=== PATIENT | female | born 1940 | race Caucasian/White ===

== ENCOUNTER 2017-01-20 15:46 | Emergency (ER) | payer OTHER ==
[~2017-01-20] VITALS: Ht 167.6 cm; Wt 73.0 kg
[~2017-01-20 15:46] MED LIST: ACET325T14 PO; BENA10TA2 PO; CEPH-368 PO; CHOL100011 PO; DIGO250T PO; FURO20TA3 PO; FURO40TA6 PO; GABA300C10 PO; GLIP5TAB10 PO; LUTE1CAP3 PO; METF10002 PO; METO-99 PO; SIMV20TA3 PO; SPIR25TA3 PO; TRAM50TA2 PO; WARF5TAB PO
[2017-01-20 16:33] LABS: HEMATOCRIT 44.5 % (34.6-47.8); WHITE BLOOD COUNT 8.7 x10^3/uL (3.4-10)
[2017-01-20 16:43] LABS: DAU SCREEN DISCLAIMER
[2017-01-20 16:44] LABS: ASPARTATE AMINO TRANSFERASE 23 U/L (15-37); BLOOD UREA NITROGEN 16 mg/dL (7-18)
[2017-01-20 16:52] LABS: ACETAMINOPHEN < 2 mcg/mL (10-30)
[2017-01-20 16:56] LABS: PATH.CAST-FLAG NOT PRESENT; SPERM-FLAG NOT PRESENT; SRC-FLAG NOT PRESENT; XTAL-FLAG NOT PRESENT; YLC-FLAG NOT PRESENT
[2017-01-20] MEDS ORDERED: INSU100V13 SQ-INSULIN (17:54)
[2017-01-20] MEDS ORDERED: GABA300C10 PO (17:54)
[2017-01-20] MEDS ORDERED: CEFDINIR 300 MG CAPSULE PO ONE (18:30)
[2017-01-20 19:09] VITALS: BP 130/82
== END 2017-01-20 19:34 | disposition home or self-care (01) ==
LOC: ED 18:09
DX: F33.9 Major depressive disorder, recurrent, unspecified (principal); R45.851 Suicidal ideations; E11.9 Type 2 diabetes mellitus without complications; E78.5 Hyperlipidemia, unspecified; I11.0 Hypertensive heart disease with heart failure; I50.9 Heart failure, unspecified; M19.90 Unspecified osteoarthritis, unspecified site
CPT/HCPCS: 36415; 71010; 80053; 80307; 80329; 81001; 85025; 87086; 99285; G0479; G0480

== ENCOUNTER 2017-04-04 17:25 | Inpatient (IN) | payer OTHER ==
[~2017-04-04] VITALS: Ht 170.2 cm; Wt 72.6 kg
[~2017-04-04 17:25] MED LIST changes: +INSU100V13 SQ-INSULIN
[2017-04-04] MEDS ORDERED: SODIUM CHLORIDE 0.9% 1,000ML IVBOLUS ONE (18:00)
[2017-04-04] MEDS ORDERED: HYDROmorphone 1 MG/ML, 1ML IVPush PRN (18:00)
[2017-04-04] MEDS ORDERED: ONDANSETRON 2MG/ML, 2ML IVPush ONE (18:00)
[2017-04-04] MEDS ORDERED: SODIUM CHLORIDE FLUSH 10ML SYR IVF ONE (18:00)
[2017-04-04] MEDS ORDERED: ONDANSETRON 2MG/ML, 2ML ONE (18:13)
[2017-04-04] MEDS ORDERED: HYDROmorphone 2 MG/ML, 1ML ONE (18:13)
[2017-04-04 18:30] LABS: MICROSCOPIC INDICATED
[2017-04-04 18:36] LABS: MEAN CORPUSCULAR HEMOGLOBIN 30.2 pg (27.0-34.8); MEAN CORPUSCULAR HGB CONC 32.6 g/dL (32.4-35.8); MEAN CORPUSCULAR VOLUME 92.5 fL (80-100); MEAN PLATELET VOLUME 7.8 fL (7.4-10.4); PLATELET COUNT 208 x10^3/uL (130-400); RED BLOOD COUNT 5.16 x10^6/uL (3.82-5.3); RED CELL DISTRIBUTION WIDTH 13.7 % (9.6-15.2)
[2017-04-04 18:43] LABS: CULTURE INDICATED? NO
[2017-04-04 18:44] LABS: INTERNATIONAL NORMALIZED RATIO 1.29 (0.93-1.1); PROTHROMBIN TIME 13.3 Seconds (9.6-11.5)
[2017-04-04 18:48] LABS: ALANINE AMINOTRANSFERASE 26 U/L (12-78); ALBUMIN 3.6 g/dL (3.4-5.0); ANION GAP 12 mmol/L (5-15); CALCIUM 9.6 mg/dL (8.5-10.1); CHLORIDE 104 mmol/L (98-107); CREATININE 1.27 mg/dL (0.55-1.02)
[2017-04-04 18:50] LABS: MD YES
[2017-04-04 18:51] LABS: BAND#(MANUAL) 2.02 x10^3/uL; BANDS%(MANUAL) 8 % (0-7); LYMPH#(MANUAL) 0.51 x10^3/uL (1-3.4); LYMPHS% (MANUAL) 2 % (22-44); MONOS#(MANUAL) 1.27 x10^3/uL (0.3-2.7); MONOS% (MANUAL) 5 % (2-9); SEG#(MANUAL) 21.51 x10^3/uL (1.8-6.8); SEGS% (MANUAL) 85 % (42-75)
[2017-04-04 18:52] LABS: <RBC MORPHOLOGY> NORMAL
[2017-04-04 18:53] LABS: <PLATELET ESTIMATE> ADEQUATE; <PLT MORPHOLOGY> NORMAL PLT MORPH
[2017-04-04 18:59] LABS: ALKALINE PHOSPHATASE 76 U/L (45-117); BILIRUBIN,TOTAL 1.3 mg/dL (0.2-1.0); CREATINE KINASE, TOTAL 112 U/L (26-192); THYROID STIMULATING HORMONE 0.843 mIU/L (0.358-3.740)
[2017-04-04] MEDS ORDERED: LACTATED RINGERS 1,000 ML IVBOLUS ONE (19:00)
[2017-04-04] MEDS ORDERED: INSULIN REGULAR 100 UNITS/ML, 3ML VIAL IVPush ONE (19:00)
[2017-04-04] MEDS ORDERED: PIPERACILLIN/TAZO/PMX 3.375GM 50 ML IV ONE (19:00)
[2017-04-04] MEDS ORDERED: INSULIN REGULAR 100 UNITS/ML, 3ML VIAL ONE (19:20)
[2017-04-04 19:22] LABS: ACETONE, SERUM Trace (10mg/dL) mg/dL (Negative)
[2017-04-04] MEDS ORDERED: OMNIPAQUE 350 MG/ML, 100ML BOTTLE ONE (19:49)
[2017-04-04] MEDS ORDERED: MAGNESIUM SULFATE PMX 4GM/100M 100 ML IV ONE (20:00)
[2017-04-04 20:35] LABS: TROPONIN I < 0.015 ng/mL (0.000-0.045)
[2017-04-04 20:45] LABS: TROPONIN I < 0.015 ng/mL (0.000-0.045)
[2017-04-04] MEDS ORDERED: LABETALOL 5MG/ML, 20ML IVPush PRN (21:00)
[2017-04-04] MEDS ORDERED: ONDANSETRON ODT 4 MG PO PRN (21:00)
[2017-04-04] MEDS ORDERED: DOCUSATE 100 MG CAPSULE PO PRN (21:00)
[2017-04-04] MEDS ORDERED: WARFARIN 5 MG TABLET PO-COUM ONE (22:00)
[2017-04-04] MEDS: SODIUM CHLORIDE 0.9% 1,000 ML IV SCH (22:19)
[2017-04-04] MEDS ORDERED: METOPROLOL TARTRATE 50 MG TABLET PO ONE (22:30)
[2017-04-04 22:56] LABS: RAPID INFLUENZA A Negative (Negative); RAPID INFLUENZA B Negative (Negative)
[2017-04-04] MEDS: ENOXAPARIN 40 MG/0.4 ML SQ SCH (23:43)
[2017-04-05] MEDS ORDERED: MAGNESIUM CITRATE 300ML ORAL SOL PO ONE (00:30)
[2017-04-05] MEDS: INSULIN ASPART 100 UNITS/ML, PEN SQ-INSULIN SCH ×5 (00:31→21:24)
[2017-04-05] MEDS: PIPERACILLIN/TAZO/PMX 3.375GM 50 ML IV SCH ×4 (02:49→21:21)
[2017-04-05 03:01] VITALS: BP 136/75
[2017-04-05] MEDS: ACETAMINOPHEN 325 MG TABLET PO PRN ×4 (03:03→21:21)
[2017-04-05 03:53] LABS: MEAN CORPUSCULAR HGB CONC 33.7 g/dL (32.4-35.8); MEAN CORPUSCULAR VOLUME 92.1 fL (80-100); MEAN PLATELET VOLUME 7.7 fL (7.4-10.4); PLATELET COUNT 198 x10^3/uL (130-400); RED BLOOD COUNT 4.68 x10^6/uL (3.82-5.3); RED CELL DISTRIBUTION WIDTH 13.5 % (9.6-15.2)
[2017-04-05 04:03] LABS: MD YES
[2017-04-05 04:08] LABS: ANION GAP 8 mmol/L (5-15); CALCIUM 9.4 mg/dL (8.5-10.1); CHLORIDE 108 mmol/L (98-107); CREATININE 1.08 mg/dL (0.55-1.02)
[2017-04-05 04:09] LABS: <PLATELET ESTIMATE> ADEQUATE; <PLT MORPHOLOGY> NORMAL PLT MORPH; <RBC MORPHOLOGY> NORMAL; BAND#(MANUAL) 2.42 x10^3/uL; BANDS%(MANUAL) 11 % (0-7); LYMPH#(MANUAL) 0.66 x10^3/uL (1-3.4); LYMPHS% (MANUAL) 3 % (22-44); MONOS#(MANUAL) 0.44 x10^3/uL (0.3-2.7); MONOS% (MANUAL) 2 % (2-9); SEG#(MANUAL) 18.48 x10^3/uL (1.8-6.8); SEGS% (MANUAL) 84 % (42-75); TROPONIN I 0.017 ng/mL (0.000-0.045)
[2017-04-05 07:53] VITALS: BP 115/79
[2017-04-05 08:04] LABS: INTERNATIONAL NORMALIZED RATIO 1.4 (0.93-1.1); PROTHROMBIN TIME 14.5 Seconds (9.6-11.5)
[2017-04-05 08:11] LABS: TROPONIN I < 0.015 ng/mL (0.000-0.045)
[2017-04-05] MEDS: SENNA/DOCUSATE TABLET PO SCH (08:25)
[2017-04-05] MEDS ORDERED: WARFARIN 5 MG TABLET PO-COUM SCH (09:00)
[2017-04-05] MEDS ORDERED: DOCU250C9 PO (09:30)
[2017-04-05] MEDS ORDERED: VIT1CAPS10 PO (09:43)
[2017-04-05] MEDS ORDERED: CHOL100011 PO (09:43)
[2017-04-05] MEDS ORDERED: MIRT7.5T8 PO (09:43)
[2017-04-05] MEDS: SODIUM CHLORIDE 0.9% 1,000 ML IV SCH (14:38)
[2017-04-05 14:58] VITALS: BP 101/53
[2017-04-05] MEDS ORDERED: WARFARIN 3 MG TABLET PO-COUM SCH (18:00)
[2017-04-05 21:09] VITALS: BP 115/66
[2017-04-05] MEDS: ENOXAPARIN 40 MG/0.4 ML SQ SCH (21:21)
[2017-04-05] MEDS: METOPROLOL SUCCINATE 25 MG TAB.ER.24H PO SCH (23:40)
[2017-04-06 02:08] VITALS: BP 118/70
[2017-04-06] MEDS: PIPERACILLIN/TAZO/PMX 3.375GM 50 ML IV SCH ×4 (02:10→19:42)
[2017-04-06] MEDS ORDERED: METOPROLOL SUCCINATE 25 MG TAB.ER.24H PO SCH (06:00)
[2017-04-06] MEDS: SODIUM CHLORIDE 0.9% 1,000 ML IV SCH (06:11)
[2017-04-06 06:20] LABS: INTERNATIONAL NORMALIZED RATIO 1.62 (0.93-1.1); PROTHROMBIN TIME 16.7 Seconds (9.6-11.5)
[2017-04-06 06:45] VITALS: BP 118/75
[2017-04-06] MEDS: METOPROLOL SUCCINATE 25 MG TAB.ER.24H PO SCH (08:07)
[2017-04-06] MEDS: SENNA/DOCUSATE TABLET PO SCH (08:07)
[2017-04-06] MEDS: INSULIN ASPART 100 UNITS/ML, PEN SQ-INSULIN SCH ×4 (08:25→21:01)
[2017-04-06] MEDS: ACETAMINOPHEN 325 MG TABLET PO PRN ×2 (10:07→21:50)
[2017-04-06 13:00] VITALS: BP 119/80
[2017-04-06] MEDS: DIGOXIN 0.25 MG TABLET PO SCH (14:15)
[2017-04-06] MEDS ORDERED: WARFARIN 7.5 MG TABLET PO-COUM SCH (18:00)
[2017-04-06 19:45] VITALS: BP 107/71
[2017-04-06] MEDS: MIRTAZAPINE 15 MG TABLET PO SCH (21:00)
[2017-04-06] MEDS: INSULIN DETEMIR 100 UNITS/ML, PEN SQ-INSULIN SCH (21:01)
[2017-04-07 01:28] VITALS: BP 113/71
[2017-04-07] MEDS: ACETAMINOPHEN 325 MG TABLET PO PRN ×3 (02:15→21:58)
[2017-04-07] MEDS: PIPERACILLIN/TAZO/PMX 3.375GM 50 ML IV SCH ×3 (02:15→14:53)
[2017-04-07 05:20] LABS: BASOPHILS # (AUTO) 0.03 x10^3/uL (0-0.1); BASOPHILS % (AUTO) 0 % (0-1); EOSINOPHILS % (AUTO) 1 % (1-7); LYMPHOCYTES # (AUTO) 1.48 x10^3/uL (1-3.4); LYMPHOCYTES % (AUTO) 15 % (22-44); MD NO; MEAN CORPUSCULAR HGB CONC 33.5 g/dL (32.4-35.8); MEAN CORPUSCULAR VOLUME 92.6 fL (80-100); MONOCYTES # (AUTO) 0.84 x10^3/uL (0.2-0.8); MONOCYTES % (AUTO) 8 % (2-9); NEUTROPHILS # (AUTO) 7.74 x10^3/uL (1.8-6.8); NEUTROPHILS % (AUTO) 76 % (42-75); PLATELET COUNT 181 x10^3/uL (130-400); RED CELL DISTRIBUTION WIDTH 14.1 % (9.6-15.2)
[2017-04-07 05:21] LABS: INTERNATIONAL NORMALIZED RATIO 1.76 (0.93-1.1); PROTHROMBIN TIME 18.1 Seconds (9.6-11.5)
[2017-04-07 05:23] LABS: ANION GAP 6 mmol/L (5-15); CALCIUM 9.4 mg/dL (8.5-10.1); CHLORIDE 110 mmol/L (98-107); CREATININE 0.87 mg/dL (0.55-1.02)
[2017-04-07] MEDS: INSULIN ASPART 100 UNITS/ML, PEN SQ-INSULIN SCH ×4 (07:00→21:35)
[2017-04-07 07:30] VITALS: BP 127/76
[2017-04-07] MEDS: GABAPENTIN 300 MG CAPSULE PO SCH (07:33)
[2017-04-07] MEDS: METOPROLOL TARTRATE 100 MG TABLET PO SCH (07:34)
[2017-04-07] MEDS: SENNA/DOCUSATE TABLET PO SCH (07:34)
[2017-04-07] MEDS ORDERED: METOPROLOL TARTRATE 100 MG TABLET PO SCH (09:00)
[2017-04-07 14:35] VITALS: BP 106/69
[2017-04-07] MEDS: DIGOXIN 0.25 MG TABLET PO SCH ×2 (14:52→16:35)
[2017-04-07] MEDS ORDERED: WARFARIN 7.5 MG TABLET PO-COUM SCH (18:00)
[2017-04-07] MEDS ORDERED: OMNIPAQUE 350 MG/ML, 100ML BOTTLE ONE (19:00)
[2017-04-07 19:52] VITALS: BP 117/71
[2017-04-07] MEDS: MIRTAZAPINE 15 MG TABLET PO SCH (21:07)
[2017-04-07] MEDS: INSULIN DETEMIR 100 UNITS/ML, PEN SQ-INSULIN SCH (21:35)
[2017-04-07] MEDS: AMPICILLIN/SULBACTAM 3 GM in SODIUM CHLORIDE 0.9% 100 ML IV SCH (21:58)
[2017-04-08 01:05] VITALS: BP 131/89
[2017-04-08] MEDS: AMPICILLIN/SULBACTAM 3 GM in SODIUM CHLORIDE 0.9% 100 ML IV SCH ×3 (05:13→21:46)
[2017-04-08] MEDS: ACETAMINOPHEN 325 MG TABLET PO PRN ×3 (05:13→17:18)
[2017-04-08 05:37] LABS: INTERNATIONAL NORMALIZED RATIO 2.26 (0.93-1.1); PROTHROMBIN TIME 23.1 Seconds (9.6-11.5)
[2017-04-08 07:06] VITALS: BP 144/93
[2017-04-08] MEDS: INSULIN ASPART 100 UNITS/ML, PEN SQ-INSULIN SCH ×4 (08:08→20:59)
[2017-04-08] MEDS: GABAPENTIN 300 MG CAPSULE PO SCH (09:19)
[2017-04-08] MEDS: DIGOXIN 0.25 MG TABLET PO SCH (09:20)
[2017-04-08] MEDS: METOPROLOL TARTRATE 100 MG TABLET PO SCH (09:20)
[2017-04-08 12:23] VITALS: BP 129/80
[2017-04-08] MEDS ORDERED: WARFARIN 5 MG TABLET PO-COUM ONE (18:00)
[2017-04-08 19:54] VITALS: BP 126/78
[2017-04-08] MEDS: SENNA/DOCUSATE TABLET PO SCH (20:00)
[2017-04-08] MEDS: MIRTAZAPINE 15 MG TABLET PO SCH (20:58)
[2017-04-08] MEDS: INSULIN DETEMIR 100 UNITS/ML, PEN SQ-INSULIN SCH (20:59)
[2017-04-09 00:59] VITALS: BP 154/89
[2017-04-09] MEDS: AMPICILLIN/SULBACTAM 3 GM in SODIUM CHLORIDE 0.9% 100 ML IV SCH ×3 (05:25→21:16)
[2017-04-09 06:06] LABS: INTERNATIONAL NORMALIZED RATIO 2.43 (0.93-1.1); PROTHROMBIN TIME 24.8 Seconds (9.6-11.5)
[2017-04-09 07:40] VITALS: BP 156/98
[2017-04-09] MEDS: SENNA/DOCUSATE TABLET PO SCH (08:15)
[2017-04-09] MEDS: INSULIN ASPART 100 UNITS/ML, PEN SQ-INSULIN SCH ×4 (08:32→21:38)
[2017-04-09] MEDS: METOPROLOL TARTRATE 100 MG TABLET PO SCH (08:33)
[2017-04-09] MEDS: GABAPENTIN 300 MG CAPSULE PO SCH (08:35)
[2017-04-09] MEDS: DIGOXIN 0.25 MG TABLET PO SCH (08:35)
[2017-04-09 15:45] VITALS: BP 144/69
[2017-04-09] MEDS ORDERED: WARFARIN 5 MG TABLET PO-COUM ONE (18:00)
[2017-04-09 18:42] VITALS: BP 145/75
[2017-04-09] MEDS: MIRTAZAPINE 15 MG TABLET PO SCH (21:15)
[2017-04-09] MEDS: INSULIN DETEMIR 100 UNITS/ML, PEN SQ-INSULIN SCH (21:38)
[2017-04-09] MEDS: ACETAMINOPHEN 325 MG TABLET PO PRN (21:46)
[2017-04-10 00:58] VITALS: BP 134/87
[2017-04-10] MEDS: ACETAMINOPHEN 325 MG TABLET PO PRN ×2 (03:56→15:05)
[2017-04-10 05:17] LABS: BASOPHILS # (AUTO) 0.05 x10^3/uL (0-0.1); BASOPHILS % (AUTO) 1 % (0-1); EOSINOPHILS # (AUTO) 0.11 x10^3/uL (0-0.4); EOSINOPHILS % (AUTO) 2 % (1-7); LYMPHOCYTES # (AUTO) 1.69 x10^3/uL (1-3.4); LYMPHOCYTES % (AUTO) 22 % (22-44); MD NO; MEAN CORPUSCULAR HEMOGLOBIN 30.5 pg (27.0-34.8); MEAN CORPUSCULAR HGB CONC 33.1 g/dL (32.4-35.8); MEAN CORPUSCULAR VOLUME 92.1 fL (80-100); MEAN PLATELET VOLUME 7.3 fL (7.4-10.4); MONOCYTES # (AUTO) 0.78 x10^3/uL (0.2-0.8); MONOCYTES % (AUTO) 10 % (2-9); NEUTROPHILS % (AUTO) 65 % (42-75); PLATELET COUNT 233 x10^3/uL (130-400); RED CELL DISTRIBUTION WIDTH 13.6 % (9.6-15.2)
[2017-04-10 05:28] LABS: ALBUMIN 2.5 g/dL (3.4-5.0); ANION GAP 4 mmol/L (5-15); CALCIUM 9.2 mg/dL (8.5-10.1); CHLORIDE 110 mmol/L (98-107); CREATININE 0.77 mg/dL (0.55-1.02)
[2017-04-10 05:34] LABS: INTERNATIONAL NORMALIZED RATIO 2.08 (0.93-1.1); PROTHROMBIN TIME 21.3 Seconds (9.6-11.5)
[2017-04-10] MEDS: AMPICILLIN/SULBACTAM 3 GM in SODIUM CHLORIDE 0.9% 100 ML IV SCH (06:08)
[2017-04-10] MEDS: INSULIN ASPART 100 UNITS/ML, PEN SQ-INSULIN SCH ×3 (07:33→16:45)
[2017-04-10] MEDS: SENNA/DOCUSATE TABLET PO SCH (07:34)
[2017-04-10] MEDS: GABAPENTIN 300 MG CAPSULE PO SCH (07:34)
[2017-04-10] MEDS: DIGOXIN 0.25 MG TABLET PO SCH (07:34)
[2017-04-10] MEDS: METOPROLOL TARTRATE 100 MG TABLET PO SCH (07:34)
[2017-04-10 08:02] VITALS: BP 146/92
[2017-04-10] MEDS ORDERED: CEPH-376 PO (13:18)
[2017-04-10 14:15] VITALS: BP 137/82
[2017-04-10] MEDS ORDERED: CEPHALEXIN 500 MG CAPSULE PO SCH (16:00)
[2017-04-10] MEDS ORDERED: WARFARIN 7.5 MG TABLET PO-COUM ONE (18:00)
== END 2017-04-10 16:48 | disposition home health service (06) | DRG 871 ==
LOC: ED 19:56 → EDIP 20:36 → 5SO 21:37
PROVIDERS: ADMIT Hospitalist; ATTEND Hospitalist
PROC: 0T9B70Z Drainage of Bladder with Drainage Device, Via Natural or Artificial Opening (ICD-10-PCS; principal; 2017-04-04)
DX: A40.8 Other streptococcal sepsis (principal); N17.0 Acute kidney failure with tubular necrosis; R65.20 Severe sepsis without septic shock; G93.41 Metabolic encephalopathy; D68.69 Other thrombophilia; E11.51 Type 2 diabetes mellitus with diabetic peripheral angiopathy without gangrene; L03.115 Cellulitis of right lower limb; I50.30 Unspecified diastolic (congestive) heart failure; W18.39XA Other fall on same level, initial encounter; E11.65 Type 2 diabetes mellitus with hyperglycemia; E83.42 Hypomagnesemia; I11.0 Hypertensive heart disease with heart failure; I48.2 Chronic atrial fibrillation; R33.9 Retention of urine, unspecified; E78.5 Hyperlipidemia, unspecified; I27.20 Pulmonary hypertension, unspecified; F32.9 Major depressive disorder, single episode, unspecified; M19.90 Unspecified osteoarthritis, unspecified site; I50.9 Heart failure, unspecified; S09.90XA Unspecified injury of head, initial encounter; S20.219A Contusion of unspecified front wall of thorax, initial encounter; Z66 Do not resuscitate; W18.30XA Fall on same level, unspecified, initial encounter; Z79.01 Long term (current) use of anticoagulants; Z79.899 Other long term (current) drug therapy; Y93.89 Activity, other specified; Y92.89 Other specified places as the place of occurrence of the external cause; Z82.49 Family history of ischemic heart disease and other diseases of the circulatory system
CPT/HCPCS: 36415; 51702; 70450; 71260; 72125; 74177; 80048; 80053; 80162; 81001; 82010; 82040; 82550; 82800; 82962; 83605; 83690; 83735; 84443; 84484; 85025; 85610; 86850; 86900; 87040; 87147; 87181; 87400; 93005; 93306; 93970; 96365; 96368; 96375; J0295; J1650; J1815; J2405; J2543; Q9967; J3475; J7030; J7120

== ENCOUNTER → 2017-04-18 | Outpatient (CLI) | payer OTHER ==
[~2017-04-18] MED LIST changes: +CEPH-376 PO; +DOCU250C9 PO; +MIRT7.5T8 PO; +VIT1CAPS10 PO
== END | disposition home or self-care (01) ==
LOC: WOUND 14:26
PROVIDERS: ATTEND Internal Medicine
DX: E11.621 Type 2 diabetes mellitus with foot ulcer (principal); L97.511 Non-pressure chronic ulcer of other part of right foot limited to breakdown of skin; E11.40 Type 2 diabetes mellitus with diabetic neuropathy, unspecified; I11.0 Hypertensive heart disease with heart failure; I50.30 Unspecified diastolic (congestive) heart failure; I48.2 Chronic atrial fibrillation; E78.5 Hyperlipidemia, unspecified; I27.20 Pulmonary hypertension, unspecified; E11.51 Type 2 diabetes mellitus with diabetic peripheral angiopathy without gangrene; M19.90 Unspecified osteoarthritis, unspecified site; F32.9 Major depressive disorder, single episode, unspecified; Z79.899 Other long term (current) drug therapy; Z79.01 Long term (current) use of anticoagulants; Z79.4 Long term (current) use of insulin
CPT/HCPCS: 11042; G0463; WOU0463

== ENCOUNTER → 2017-04-25 | Outpatient (CLI) | payer OTHER | END | disposition home or self-care (01) | LOC: WOUND 15:17 | PROVIDERS: ATTEND Internal Medicine | DX: E11.621 Type 2 diabetes mellitus with foot ulcer (principal); L97.511 Non-pressure chronic ulcer of other part of right foot limited to breakdown of skin; E11.40 Type 2 diabetes mellitus with diabetic neuropathy, unspecified; I48.2 Chronic atrial fibrillation; E78.5 Hyperlipidemia, unspecified; I11.0 Hypertensive heart disease with heart failure; I50.30 Unspecified diastolic (congestive) heart failure; F32.9 Major depressive disorder, single episode, unspecified; E11.51 Type 2 diabetes mellitus with diabetic peripheral angiopathy without gangrene; M19.90 Unspecified osteoarthritis, unspecified site; L84 Corns and callosities; Z79.01 Long term (current) use of anticoagulants; Z79.4 Long term (current) use of insulin | CPT/HCPCS: 97597 ==